=== PATIENT | female | born 1965 | race Caucasian/White ===

== ENCOUNTER 2019-05-26 11:33 | Emergency (ER) | payer SELFPAY ==
[2019-05-26 11:43] VITALS: TEMP 97.2; BMI 26.7
[2019-05-26] MEDS ORDERED: morphine CARPU-JECT 4 MG/1 ML DISP.SYRIN IVPUSH ONE (11:43)
[2019-05-26] MEDS ORDERED: morphine SULFATE 4 MG/ML VIAL ONE (11:47)
--- NOTE | 2019-05-26 11:53 | PDOC ---
History of Present Illness - General Chief Complaint: Pain Stated Complaint: BROKEN LT ANKEL Time Seen by Provider: 05/26/19 11:36 History Source: Patient, EMS Exam Limitations: No Limitations - History of Present Illness Initial Comments: 05/26/19 11:50 54F with a PMH of DM who presents to the ER after having an ankle injury. The patient states that she was walking in a house with uneven floor and rolled on her ankle. Per EMS, the "put the ankle back in place". Pt denies other injuries including hips and knees. Denies numbness, tingling, and weakness. Denies syncope. Past History - Past Medical History Allergies/Adverse Reactions: Allergies Allergy/AdvReac Type Severity Reaction Status Date / Time No Known Allergies Allergy Verified 05/26/19 11:38 Home Medications: Ambulatory Orders Oxycodone HCl/Acetaminophen [Percocet 5-325 mg Tablet] 1 tab PO Q6H PRN #15 tablet MDD 4 tabs 05/26/19 CVA: No COPD: No Diabetes: Yes (NIDDM) - Suicide/Smoking/Psychosocial Hx Smoking History: Never smoked Review of Systems - Review of Systems Able to Perform ROS?: Yes Comments:: 05/26/19 11:51 GENERAL/CONSTITUTIONAL: No fever or chills. No weakness. HEAD, EYES, EARS, NOSE AND THROAT: No change in vision. No ear pain or discharge. No sore throat. CARDIOVASCULAR: No chest pain, palpitations, or lightheadedness. RESPIRATORY: No cough, wheezing, shortness of breath, or hemoptysis. GASTROINTESTINAL: No abdominal pain, nausea, vomiting, diarrhea, or constipation. GENITOURINARY: No dysuria, frequency, hematuria, or change in urination. MUSCULOSKELETAL: + for L ankle injury. No neck or back pain. SKIN: No rash or lesions. NEUROLOGIC: No headache, numbness, tingling, focal weakness, loss of consciousness, or change in strength/sensation. Is the patient limited Luxembourgish proficient: No *Physical Exam - Vital Signs Last Vital Signs Temp Pulse Resp BP Pulse Ox 97.2 F L 95 H 20 174/91 H 98 05/26/19 11:38 05/26/19 11:38 05/26/19 11:38 05/26/19 11:38 05/26/19 11:38 - Physical Exam Comments: 05/26/19 11:51 GENERAL: Well developed, well nourished. Awake and alert. No acute distress. HEENT: Normocephalic, atraumatic. Hearing grossly normal. Moist mucous membranes. PERRLA, EOMI. No conjunctival pallor. Sclera are non-icteric. NECK: Supple. Full ROM. No JVD. MUSCULOSKELETAL: TTP over distal medial malleolus on L ankle w/ edema and limited ROM. Neurovascularly intact. Otherwise, normal range of motion at all joints. No bony deformities or tenderness. EXTREMITIES: No cyanosis. No clubbing. No edema. No calf tenderness or swelling. SKIN: Warm and dry. Normal capillary refill. No rashes. No jaundice. NEUROLOGICAL: Alert, awake, appropriate. Cranial nerves 2-12 grossly intact. Normal speech. PSYCHIATRIC: Cooperative. Good eye contact. Appropriate mood and affect. Procedures - Joint Reduction Left Joint Reduction Site: right: Posterior Dislocation (ankle) Pre-Procedure NV Exam: normal Conscious Sedation: No Finger Block: Hematoma Reduction Attempts: 1 Anesthetic: 1% Lidocaine Amount (mL): 10 Procedure: Traction Counter Traction Post-Procedure NV Exam: normal Complications: No Post Joint Reduction Film: joint reduced Splint: Yes Immobilized: Yes ED Treatment Course - LABORATORY CBC & Chemistry Diagram: 05/26/19 12:41 05/26/19 12:41 - RADIOLOGY Radiology Studies Ordered: Category Date Time Status ANKLE & FOOT-LEFT* [RAD] Stat Radiology 05/26/19 11:36 Ordered KNEE 2 POS-LEFT [RAD] Stat Radiology 05/26/19 11:36 Ordered LEG TIB/FIB-LEFT [RAD] Stat Radiology 05/26/19 11:36 Ordered Medical Decision Making - Medical Decision Making 05/26/19 11:52 54F with a PMH of DM who presents with a L ankle injury. Will give IV pain medication to assist with imaging and manipulation of ankle. 05/26/19 13:54 Imaging showed trimalleolar fracture. Dr. Khan at bedside. Reduction and splint placed without any issues. Post reduction images show proper alignment and placement. Family instructed on proper care and follow up, including icing and elevating the ankle. 05/26/19 14:07 Pt does not have insurance so I talked to social work who recommends the patient going to the [facility]. Will inform pt and put in d/c instructions. *DC/Admit/Observation/Transfer Diagnosis at time of Disposition: Trimalleolar fracture of ankle, closed Qualifiers: Encounter type: initial encounter Laterality: left Qualified Code(s): S82.852A - Displaced trimalleolar fracture of left lower leg, initial encounter for closed fracture - Discharge Dispostion Disposition: HOME Condition at time of disposition: Stable Decision to Admit order: No - Prescriptions Prescriptions: Oxycodone HCl/Acetaminophen [Percocet 5-325 mg Tablet] 1 tab PO Q6H PRN #15 tablet MDD 4 tabs PRN Reason: Pain - Referrals Referrals: Reed Khan DO [Staff Physician] - - Patient Instructions Printed Discharge Instructions: DI for Ankle Fracture Additional Instructions: Please follow these instructions for the care of your ankle: non weight bearing on fractured side on crutches. please come back if you feel new onset numbness, tingling, or significantly increasing pain occur. maintain strict elevation above the level of the heart for the next 3-4 days. keeping the splint clean and dry. avoiding NSAID medications (such as ibuprofen, motrin, or advil). - Ice/elevate left ankle at all times. Please follow up in their clinic in 1-2 weeks. Please come back to the ER if you are concerned about any symptoms. Please follow up with the department of health so that you can obtain insurance. Por favor siga estas instrucciones para el cuidado de schafer tobillo: sin carga de peso en el lado fracturado con muletas. por favor regrese si siente un nuevo inicio de entumecimiento, hormigueo o un aumento significativo del dolor. Mantenga ranulfo elevacin estricta por encima del nivel del corazn drew los prximos 3-4 latif. Mantener la frula limpia y seca. evitar los medicamentos RADHA (pankaj ibuprofeno, motrin o advil). - Hielo / elevar el tobillo anthony en todo momento. Por favor joseph el seguimiento en schafer clnica en 1-2 semanas. Regrese a la soraida de emergencias si est preocupado por algn sntoma. Por favor joseph un seguimiento con el departamento de norma para que pueda obtener un seguro. Print Language: BENGALI - Post Discharge Activity
--- NOTE | 2019-05-26 12:47 | CONSULT ---
Consult - text type - Consultation Consultation Note: ORTHOPEDIC SURGERY CONSULTATION NOTE Department of Orthopedic Surgery HISTORY OF PRESENT ILLNESS Ms. Dyson is a 54 year old female with PMH of DM who presents to the ER after having an ankle injury.who presents to [facility] ER with a left ankle fracture. The orthopedic service was consulted for a left ankle fracture dislocation. The injury occurred after a mechanical trip and fall at home. The patient notes pain and swelling in her right ankle, which improves with rest and elevation. Denies any other injuries. Denies numbness, tingling or other constitutional complaints. Denies tobacco use, drug use, alcohol abuse. The patient lives with family at home, and uses no assistive devices at baseline. FAMILY HISTORY noncontributory REVIEW OF SYMPTOMS A twelve-point review of systems was performed and was negative except as noted in HPI. PHYSICAL EXAM Constitutional: Alert and oriented to person, place, and time. Appears well- developed and well-nourished. No acute distress, appropriate mood and affect. Right Upper Extremity: Skin warm, dry, and intact; no lesions, rashes or ulcers noted. Muscle mass equal and symmetric to contralateral side. No atrophy noted. No masses or effusions noted. No tenderness to palpation all joints; nontender throughout rest of extremity. Full passive and active ROM, free from pain. Joints stable with no pathologic laxity. M/R/U/MSK/AX motor intact; SILT distally; 2+ radial pulses; Cap refill brisk. Tone and reflexes normal. Left Upper Extremity: Skin warm, dry, and intact; no lesions, rashes or ulcers noted. Muscle mass equal and symmetric to contralateral side. No atrophy noted. No masses or effusions noted. No tenderness to palpation all joints; nontender throughout rest of extremity. Full passive and active ROM, free from pain. Joints stable with no pathologic laxity. M/R/U/MSK/AX motor intact; SILT distally; 2+ radial pulses; Cap refill brisk. Tone and reflexes normal. Right Lower Extremity: Skin warm, dry, and intact; no lesions, rashes or ulcers noted. Muscle mass equal and symmetric to contralateral side. No atrophy noted. No masses or effusions noted. No tenderness to palpation; nontender throughout rest of extremity. No cords or calf tenderness No significant calf/ankle edema. Full passive and active ROM, free from pain. Joints stable with no pathologic laxity. EHL/TA/GS motor intact; SILT distally; 2+ DP pulses; Cap refill brisk. Tone and reflexes normal. Left Lower Extremity: Skin warm, dry, and intact; no lesions, rashes or ulcers noted. Deformity noted at the ankle. Muscle mass equal and symmetric to contralateral side. No atrophy noted. No masses or effusions noted. Tender to palpation at the left ankle with significant deformity. Nontender throughout rest of extremity. No cords or calf tenderness No significant calf/ankle edema. Full passive and active ROM of the hip and knee , free from pain. Joints stable with no pathologic laxity. EHL/TA/GS motor intact; SILT distally; 2+ DP pulses; Cap refill brisk. Tone and reflexes normal. Social History Smoking history Never smoked Allergies Allergy/AdvReac Type Severity Reaction Status Date / Time No Known Allergies Allergy Verified 05/26/19 11:38 Vital Signs (last) Temp Pulse Resp BP Pulse Ox 97.2 F L 95 H 20 174/91 H 98 05/26/19 11:38 05/26/19 11:38 05/26/19 11:38 05/26/19 11:38 05/26/19 11:38 Intake and Output 05/24/19 05/25/19 05/26/19 23:59 23:59 23:59 Other: Weight 151 lb Height 5 ft 3 in Body Mass Index (BMI) 26.7 Weight Measurement Method Est/Stated by Patient Laboratory 05/26/19 12:41 PT with INR 10.20 SEC (9.7-13.0) 05/26/19 12:41 IMAGING I personally reviewed all radiographs, CT, and other imaging. They demonstrate a left ankle trimalleolar fracture dislocation. Post reduction X-rays: Adequate positioning and reduction of trimalleolar left ankle fracture in splint ASSESSMENT AND PLAN Ms. Dyson is a 54 year old female presenting status post mechanical fall with a left sided ankle fracture. We have reviewed the imaging and clinical findings in detail, as well as their potential implications. After appropriate informed discussion, the patient was placed in a well-padded splint. Patient was instructed regarding: non weight bearing on fractured side on crutches. signs and symptoms of compartment syndrome and need to seek immediate care should new onset numbness, tingling, or significantly increasing pain occur. maintain strict elevation above the level of the heart for the next 3-4 days. keeping the splint clean and dry. avoiding NSAID medications. - Ice/elevate left ankle at all times All questions were answered. Thank you for involving our team in the care of this patient. Please have patient follow up in our office in 1-2 weeks . PROCEDURE NOTE: After informed consent was obtained, the patient was prepped with alcohol and a hematoma block was administered with 10cc's of 1% plain lidocaine into the ankle sulcus. The patient tolerated this well. Afterwards a reduction maneuver was performed, and the patient was placed in a well padded trilaminar splint. The patient tolerated this well.
[2019-05-26 12:49] LABS: BASO % 0.7 % (0-2.0); EOS % 0.6 % (0-4.5); HEMATOCRIT 43.9 % (32.4-45.2); HEMOGLOBIN 15.2 GM/dL (10.7-15.3); LYMPH % 22.2 % (8-40); MCHC 34.6 g/dl (32.0-36.0); MEAN CELL VOLUME 89.8 fl (80-96); MEAN PLT VOLUME 9.1 fl (7.5-11.1); MONO % 4.2 % (3.8-10.2); NEUT % 72.3 % (42.8-82.8); RBC 4.89 M/mm3 (3.60-5.2); WHITE BLOOD COUNT 8.2 K/mm3 (4.0-10.0)
[2019-05-26] MEDS ORDERED: LIDOCAINE HCL 1%, 10 MG/ML (50 mL VIAL) SQ ONE (12:50)
[2019-05-26] MEDS ORDERED: LIDOCAINE HCL 1%, 10 MG/ML (20ML VIAL) ONE (12:53)
--- NOTE | 2019-05-26 12:55 | PDOC ---
Documentation entered by Paxton Vergara SCRIBE, acting as scribe for Zohreh Maxwell DO. Zohreh Maxwell DO: This documentation has been prepared by the Ursula wlash Elijah, SCRIBE, under my direction and personally reviewed by me in its entirety. I confirm that the documentation accurately reflects all work, treatment, procedures, and medical decision making performed by me. Attending Attestation - Resident Resident Name: VillamarvinDaren - ED Attending Attestation I have performed the following: I have examined & evaluated the patient, The case was reviewed & discussed with the resident, I agree w/resident's findings & plan - HPI HPI: 05/26/19 12:30 The patient is a 54 year old female with a significant past medical history of DM who presents to the ED with an ankle injury. The patient reports walking on an uneven surface and then she rolled her ankle. As per EMS, the patients tried to put the ankle back in place as it was said to be turned around to the back. The patient associates some back pain. Denies Hip/Knee injury, Syncope, Numbness, Tingling, Weakness Allergies: NKA PCP: None - Physicial Exam PE: 05/26/19 12:31 GENERAL: Awake, alert, and fully oriented, in no acute distress HEAD: No signs of trauma EYES: PERRLA, EOMI, sclera anicteric, conjunctiva clear ENT: Auricles normal inspection, hearing grossly normal, nares patent, oropharynx clear without exudates. Moist mucosa NECK: Normal ROM, supple, no lymphadenopathy, JVD, or masses LUNGS: Breath sounds equal, clear to auscultation bilaterally. No wheezes, and no crackles HEART: Regular rate and rhythm, normal S1 and S2, no murmurs, rubs or gallops ABDOMEN: Soft, nontender, normoactive bowel sounds. No guarding, no rebound. No masses EXTREMITIES: + Deformity in Lower Extremity. No edema. No clubbing or cyanosis. No cords, erythema, or tenderness NEUROLOGICAL: Cranial nerves II through XII grossly intact. Normal speech, normal gait SKIN: Warm, Dry, normal turgor, no rashes or lesions noted. - Medical Decision Making 05/26/19 12:50 I, Dr. Zohreh Maxwell DO, attest that this document has been prepared under my direction and personally reviewed by me in its entirety. I further attest, that it accurately reflects all work, treatment, procedures and medical decision -making performed by me. 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 Bustillo who will come in for reduction and splinting 05/26/19 12:55 dr bustillo at the bedside to eval the patient 05/26/19 13:02 pt with trimalleolar fx 05/26/19 13:39 pt has been reduced and splinted 05/26/19 14:17 pt will be taught crutch walking, non weight bearing
[2019-05-26 13:01] LABS: PLATELET COUNT 206 K/MM3 (134-434)
[2019-05-26 13:03] LABS: INR 0.87 (0.83-1.09); PROTHROMBIN TIME (PATIENT) 10.2 SEC (9.7-13.0)
[2019-05-26 13:25] LABS: ALBUMIN 3.5 g/dl (3.4-5.0); BILIRUBIN,TOTAL 0.3 mg/dL (0.2-1); CALCIUM 8.6 mg/dL (8.5-10.1); CREATININE 0.7 mg/dL (0.55-1.3); TOT PROT 6.7 g/dl (6.4-8.2)
[2019-05-26] MEDS ORDERED: SODIUM CHLORIDE 0.9% 1000 ML INFUS.BAG IV ONE (13:39)
[2019-05-26 14:52] VITALS: BP 148/84; PULSE 86
== END 2019-05-26 14:45 | disposition home or self-care (01) ==
LOC: JER 11:33
PROC: 0QSKXZZ Reposition Left Fibula, External Approach (ICD-10-PCS; principal; 2019-05-26)
PROC: 0QSHXZZ Reposition Left Tibia, External Approach (ICD-10-PCS; 2019-05-26)
DX: S82.852A Displaced trimalleolar fracture of left lower leg, initial encounter for closed fracture (principal); X50.1XXA Overexertion from prolonged static or awkward postures, initial encounter; Y93.89 Activity, other specified; Y92.038 Other place in apartment as the place of occurrence of the external cause; Y99.8 Other external cause status
CPT/HCPCS: 36415; 73560-TC-LT-FY; 73590-TC-LT-FY; 73610-TC-LT-FY; 73630-TC-LT; 80053; 85025; 85610; 86850; 86900; 86901; 99283-25; J7030